=== PATIENT | male | born 1955 | race African-American/Black ===

== ENCOUNTER → 2016-08-02 | Outpatient (CLI) | payer OTHER ==
[2016-03-14 20:09] VITALS: BP 156/86
[~2016-08-02] MED LIST: AMLO5TAB4 PO; ATOR40TA PO; Aspirin PO; BENA20TA2 PO; BENZ200C39 PO; CLOP75TA27 PO; CYCL10TA2 PO; LISI5TAB PO; Metoprolol Tartrate PO
--- NOTE | 2016-08-02 14:59 | CARD ---
APPROVED REPORT EXAM: Two-dimensional and M-mode echocardiogram with Doppler and color Doppler. Other Information Quality : GoodHR: 62bpm Rhythm : NSR INDICATION Non STEMI 2D DIMENSIONS RVDd3.5 (2.9-3.5cm)Left Atrium(2D)3.8 (1.6-4.0cm) IVSd1.0 (0.7-1.1cm)Aortic Root(2D)3.3 (2.0-3.7cm) LVDd5.6 (3.9-5.9cm)LVOT Diameter2.3 (1.8-2.4cm) PWd1.0 (0.7-1.1cm)LVDs4.4 (2.5-4.0cm) FS (%) 21.2 %SV66.0 ml Aortic Valve AoV Peak Wilver.138.4cm/sAoV VTI26.0cm AO Peak GR.7.7mmHgLVOT Peak Wilver.104.4cm/s LVOT VTI 22.22cmAO Mean GR.5mmHg KENNEY (VMAX)3.23vf5ZEZ (VTI)3.55cm2 Mitral Valve MV E Fbwcufls60.8cm/sMV DECEL SEKQ784ve MV A Sozsnkql38.8cm/sMV E Mean Gr.2mmHg MV DGY14faE/A Ratio0.8 MV A Sfjuczcz214gdKLF (PHT)3.13cm2 TDI E/Lateral E'7.4E/Medial E'9.5 Pulmonary Valve PV Peak Clsyadgt090.3cm/sPV Peak Grad.5mmHg RVOT VTI18.4cm Tricuspid Valve TR P. Mzxbnojw524bw/sRAP RRUGCQLY1kiUh TR Peak Gr.15wrRaREYN33cuCr Pulmonary Vein S1 Qlxgmopy77.5cm/sD2 Yxvccupk62.6cm/s PVa wwalrfmt712spkr LEFT VENTRICLE The left ventricle is normal size. There is normal left ventricular wall thickness. Left ventricle sy stolic function is mildly impaired. The Ejection Fraction is 45-50%. There is mild hypokinesis of the septal wall. Transmitral Doppler flow pattern is Grade I-abnormal relaxation pattern. There is no ve ntricular septal defect visualized. RIGHT VENTRICLE The right ventricle is normal size. The right ventricular systolic function is normal. Thickened mode rator band. ATRIA The left atrium size is normal. The right atrium size is normal. The interatrial septum is intact wit h no evidence for an atrial septal defect or patent foramen ovale as noted on 2-D or Doppler imaging. AORTIC VALVE The aortic valve is normal in structure and function. The aortic valve is trileaflet. Doppler and Col or Flow revealed no significant aortic regurgitation. There is no significant aortic valvular stenosi s. MITRAL VALVE The mitral valve is normal in structure and function. There is no evidence of mitral valve prolapse. There is no mitral valve stenosis. Doppler and Color Flow revealed mild mitral regurgitation. TRICUSPID VALVE The tricuspid valve is normal in structure and function. Doppler and Color Flow revealed trace to mil d tricuspid regurgitation. The PA pressure was estimated at 36 mmHg. PULMONIC VALVE The pulmonary valve is normal in structure and function. Doppler and Color Flow revealed trace pulmon ic valvular regurgitation. There is no pulmonic valvular stenosis. GREAT VESSELS The aortic root is normal in size. The ascending aorta is normal in size. Normal pulmonary venous merritt w (Doppler). The IVC is normal in size and collapses >50% with inspiration. PERICARDIAL EFFUSION There is no pleural effusion. There is no evidence of significant pericardial effusion. Critical Notification Critical Value: No <Conclusion> The left ventricle is normal size. Left ventricle systolic function is mildly impaired. The Ejection Fraction is 45-50%. There is mild hypokinesis of the septal wall. There is no significant aortic valvular stenosis. Doppler and Color Flow revealed no significant aortic regurgitation. Doppler and Color Flow revealed mild mitral regurgitation. Doppler and Color Flow revealed trace to mild tricuspid regurgitation. The PA pressure was estimated at 36 mmHg.
== END | disposition home or self-care (01) ==
LOC: ECHO 09:38
PROVIDERS: ATTEND Internal Medicine Cardiovascular Disease
DX: I21.4 Non-ST elevation (NSTEMI) myocardial infarction (principal); R93.1 Abnormal findings on diagnostic imaging of heart and coronary circulation; I08.1 Rheumatic disorders of both mitral and tricuspid valves
CPT/HCPCS: 93306

== ENCOUNTER 2017-05-14 22:42 | Emergency (ER) | payer OTHER ==
[2017-05-14 23:09] LABS: HEMATOCRIT 45.3 % (39.0-53.0); HEMOGLOBIN 15.2 g/dL (13.0-17.5); MEAN CORPUSCULAR HEMOGLOBIN 27 pg (25-35); MEAN CORPUSCULAR HGB CONC 34 g/dL (31-37); MEAN CORPUSCULAR VOLUME 81 fL (79-100); PLATELET COUNT 93 x10^3/uL (140-400); RED BLOOD COUNT 5.57 x10^6/uL (4.30-5.70); RED CELL DISTRIBUTION WIDTH 14.9 % (11.5-14.5); WHITE BLOOD COUNT 7.9 x10^3/uL (4.0-11.0)
[2017-05-14] MEDS: NITROGLYCERIN SUBLINGUAL 0.4 MG BOTTLE OF 25. SL (23:12)
[2017-05-14 23:33] LABS: TROPONINI < 0.017 ng/mL (0.000-0.055)
[2017-05-14 23:55] LABS: ANION GAP 12 (6-14); BLOOD UREA NITROGEN 13 mg/dL (8-26); BUN/CREATININE RATIO 13 (6-20); CALCIUM 9.1 mg/dL (8.5-10.1); CARBON DIOXIDE 29 mmol/L (21-32); CHLORIDE 101 mmol/L (98-107); GFR 91.9; GLUCOSE 134 mg/dL (70-99); POTASSIUM 3.6 mmol/L (3.5-5.1); SODIUM 142 mmol/L (136-145)
[2017-05-15 00:01] LABS: ALBUMIN 3.8 g/dL (3.4-5.0); ALK PHOS 99 U/L (46-116); ALT (SGPT) 30 U/L (16-63); AST (SGOT) 16 U/L (15-37); TOTAL BILIRUBIN 0.7 mg/dL (0.2-1.0); TOTAL PROTEIN 7.5 g/dL (6.4-8.2)
[2017-05-15 02:29] LABS: TROPONINI < 0.017 ng/mL (0.000-0.055)
== END 2017-05-15 03:31 | disposition home or self-care (01) ==
LOC: ER 05-15 03:31
DX: R07.2 Precordial pain (principal); I10 Essential (primary) hypertension; I25.2 Old myocardial infarction; I25.10 Atherosclerotic heart disease of native coronary artery without angina pectoris
CPT/HCPCS: 36415; 71045; 80053; 84484; 85027; 93005; 99285-25

== ENCOUNTER 2021-06-23 00:54 | Emergency (ER) | payer MEDICARE, OTHER ==
[~2021-06-23] VITALS: Ht 175.3 cm; Wt 87.7 kg
[~2021-06-23 00:54] MED LIST changes: +AMLO-187 PO; +ATORVASTATIN CA80 MG PO; -BENA20TA2 PO; +BENA20TA84 PO; +BENA40TA74 PO; -BENZ200C39 PO; +BENZ200C47 PO; +BUPR150T8 PO; +CEPH-264 PO; -CLOP75TA27 PO; +CLOP75TA57 PO; +CYCL10TA19 PO; -CYCL10TA2 PO; +EMPA10TA3 PO; +METF500T16 PO; +METO-247 PO; +SULF1TAB24 PO
[2021-06-23 01:42] LABS: BASO # 0.1 x10^3/uL (0.0-0.2); BASO % 1 % (0-3); EOS # 0.1 x10^3/uL (0.0-0.7); EOS % 2 % (0-3); HEMATOCRIT 40.9 % (39.0-53.0); HEMOGLOBIN 13.5 g/dL (13.0-17.5); LYMPH # 2.6 x10^3/uL (1.0-4.8); LYMPH % 49 % (24-48); MEAN CORPUSCULAR HEMOGLOBIN 27 pg (25-35); MEAN CORPUSCULAR HGB CONC 33 g/dL (31-37); MEAN CORPUSCULAR VOLUME 81 fL (79-100); MONO # 0.5 x10^3/uL (0.0-1.1); MONO % 10 % (0-9); NEUT % 39 % (31-73); PLATELET COUNT 95 x10^3/uL (140-400); RED BLOOD COUNT 5.04 x10^6/uL (4.30-5.70); WHITE BLOOD COUNT 5.2 x10^3/uL (4.0-11.0)
--- NOTE | 2021-06-23 01:44 | ED.ADGEN ---
Past Medical History Past Medical History: High Cholesterol, Hypertension, NH Past Surgical History: Other Additional Past Surgical Histo: Heart stent, menicus tear repair X2, carpal tunnel, right rotator cuff Smoking Status: Current Every Day Smoker Alcohol Use: None Drug Use: None General Adult EDM: Chief Complaint: UPPER EXTREMITY PAIN HPI: HPI: Patient is a 65 year old male coming in for a "fluttering" sensation in his left lateral chest just beneath the breast. 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 Says he does do heavy lifting at work. Patient has a history of an NH 7 years ago and is concerned about having chest pain, does state this feels different. Not taking any anticoagulant or aspirin. Had a stent placed 7 years ago. Review of Systems: Review of Systems: All other systems within normal limits except for as noted in the HPI Current Medications: Current Medications Medications (Trade) Dose Ordered Sig/Khushboo Start Time Stop Time Status Last Admin Dose Admin Magnesium Oxide (Magnesium Oxide) 400 mg 1X STAT 06/23/21 02:17 06/23/21 02:21 DC 06/23/21 02:35 400 MG Potassium Chloride (Klor-Con) 40 meq 1X ONCE 06/23/21 02:30 06/23/21 02:31 DC 06/23/21 02:36 40 MEQ Potassium Phos/ Sodium Phos (Phos-Nak) 1 pkt 1X STAT 06/23/21 02:17 06/23/21 02:21 DC 06/23/21 02:35 1 PKT Allergies: Allergies: Allergies Coded Allergies Type Severity Reaction Last Updated Verified No Known Drug Allergies 04/12/13 No Physical Exam: PE: Constitutional: Well developed, well nourished, no acute distress, non-toxic donavan earance. [] HENT: Normocephalic, atraumatic, bilateral external ears normal, nose normal. [] Eyes: PERRLA, conjunctiva normal, no discharge. [] Neck: No rigidity, supple, no stridor. [] Cardiovascular: Regular rate and rhythm, brisk cap refill [] Lungs & Thorax: Non labored symmetric respirations, no tachypnea or respiratory distress [] Abdomen: Soft, nondistended. Skin: Warm, dry, no erythema, no rash. [] Back: Unremarkable Extremities: No deformities, range of motion grossly intact, no lower extremity edema [] Neurologic: Alert and oriented X 3, no focal deficits noted. [] Psychologic: Affect normal, judgement normal, mood normal. [] Current Patient Data: Labs: Laboratory Tests Test 06/23/21 01:10 White Blood Count 5.2 x10^3/uL (4.0-11.0) Red Blood Count 5.04 x10^6/uL (4.30-5.70) Hemoglobin 13.5 g/dL (13.0-17.5) Hematocrit 40.9 % (39.0-53.0) Mean Corpuscular Volume 81 fL (79-100) Mean Corpuscular Hemoglobin 27 pg (25-35) Mean Corpuscular Hemoglobin Concent 33 g/dL (31-37) Red Cell Distribution Width 14.0 % (11.5-14.5) Platelet Count 95 x10^3/uL (140-400) L Neutrophils (%) (Auto) 39 % (31-73) Lymphocytes (%) (Auto) 49 % (24-48) H Monocytes (%) (Auto) 10 % (0-9) H Eosinophils (%) (Auto) 2 % (0-3) Basophils (%) (Auto) 1 % (0-3) Neutrophils # (Auto) 2.0 x10^3/uL (1.8-7.7) Lymphocytes # (Auto) 2.6 x10^3/uL (1.0-4.8) Monocytes # (Auto) 0.5 x10^3/uL (0.0-1.1) Eosinophils # (Auto) 0.1 x10^3/uL (0.0-0.7) Basophils # (Auto) 0.1 x10^3/uL (0.0-0.2) Sodium Level 141 mmol/L (136-145) Potassium Level 3.2 mmol/L (3.5-5.1) L Chloride Level 99 mmol/L (98-107) Carbon Dioxide Level 29 mmol/L (21-32) Anion Gap 13 (6-14) Blood Urea Nitrogen 18 mg/dL (8-26) Creatinine 1.4 mg/dL (0.7-1.3) H Estimated GFR (Cockcroft-Gault) 61.5 BUN/Creatinine Ratio 13 (6-20) Glucose Level 146 mg/dL (70-99) H Calcium Level 9.5 mg/dL (8.5-10.1) Phosphorus Level 2.1 mg/dL (2.6-4.7) L Magnesium Level 1.6 mg/dL (1.8-2.4) L Total Bilirubin 1.0 mg/dL (0.2-1.0) Aspartate Amino Transferase (AST) 19 U/L (15-37) Alanine Aminotransferase (ALT) 27 U/L (16-63) Alkaline Phosphatase 86 U/L (46-116) Troponin I High Sensitivity 9 ng/L (4-75) Total Protein 7.1 g/dL (6.4-8.2) Albumin 4.1 g/dL (3.4-5.0) Albumin/Globulin Ratio 1.4 (1.0-1.7) Laboratory Tests 06/23/21 01:10 Laboratory Tests 06/23/21 01:10 Vital Signs: Vital Signs Date Time Temp Pulse Resp B/P (MAP) Pulse Ox O2 Delivery O2 Flow Rate FiO2 06/23/21 00:55 98.7 71 20 141/69 (93) 100 Room Air 98.7 EKG: EKG: Sinus rhythm, heart rate 70 beats minute, normal axis, no isolation depression [] Heart Score: C/O Chest Pain: Yes HEART Score for Chest Pain: HEART Score for Chest Pain Response (Comments) Value History Slighlty/Non-Suspicious 0 ECG Normal 0 Age > 65 2 Risk Factors >3 Risk Factors or Hx CAD 2 Troponin < Normal Limit 0 Total 4 Risk Factors: Risk Factors: DM, Current or recent (<one month) smoker, HTN, HLP, family history of CAD, obesity. Risk Scores: Score 0 - 3: 2.5% MACE over next 6 weeks - Discharge Home Score 4 - 6: 20.3% MACE over next 6 weeks - Admit for Clinical Observation Score 7 - 10: 72.7% MACE over next 6 weeks - Early Invasive Strategies Radiology/Procedures: Radiology/Procedures: [facility] [address] [place], [place] [id number] IMAGING REPORT Signed PATIENT: RICARDO GEORGE ACCOUNT: [id number] : 1955 LOCATION: ER AGE: 65 SEX: M EXAM STATUS: REG ER ORD. PHYSICIAN: ANGELICA MCKEON MD REASON: chest pain PROCEDURE: CHEST AP ONLY EXAM: XR CHEST 1V 06/23/2021 1:38 AM CLINICAL INDICATION: Chest pain COMPARISON: Chest radiograph 10/26/2018 TECHNIQUE: AP upright view of the chest FINDINGS: The heart is normal in size. Lungs are adequately expanded. No consolidation, pleural effusion, or pneumothorax. IMPRESSION: No acute cardiopulmonary abnormality. Electronically signed by: Angelica Anna MD (06/23/2021 2:29 AM) [facility] DICTATED and SIGNED BY: ANGELICA ANNA MD DATE: 06/23/21 [id number] [] Course & Med Decision Making: Course & Med Decision Making Pertinent Labs and Imaging studies reviewed. (See chart for details) [] Dragon Disclaimer: Dragon Disclaimer: This electronic medical record was generated, in whole or in part, using a voice recognition dictation system. Departure Departure Impression: Primary Impression: Chest pain Additional Impression: Hypokalemia Disposition: 01 HOME / SELF CARE / HOMELESS Condition: STABLE Referrals: CAROLINE SIERRA MD (PCP) Patient Instructions: Hypokalemia-Brief Problem Qualifiers ANGELICA MCKEON MD Jun 23, 2021 01:44
[2021-06-23 02:03] LABS: ALBUMIN 4.1 g/dL (3.4-5.0); ALBUMIN/GLOBULIN RATIO 1.4 (1.0-1.7); CALCIUM 9.5 mg/dL (8.5-10.1); CREATININE 1.4 mg/dL (0.7-1.3); GFR 61.5; MAGNESIUM 1.6 mg/dL (1.8-2.4); PHOSPHORUS 2.1 mg/dL (2.6-4.7); POTASSIUM 3.2 mmol/L (3.5-5.1); TOTAL PROTEIN 7.1 g/dL (6.4-8.2)
[2021-06-23] MEDS ORDERED: MAGNESIUM OXIDE 400 MG TABLET PO STA (02:17)
[2021-06-23] MEDS ORDERED: POTASSIUM & SODIUM PHOSPHATES PACKET. PO STA (02:17)
[2021-06-23] MEDS ORDERED: POTASSIUM CHLORIDE 20 MEQ TABLET.ER. PO ONE (02:30)
--- NOTE | 2021-06-23 02:32 | RAD ---
EXAM: XR CHEST 1V 06/23/2021 1:38 AM CLINICAL INDICATION: Chest pain COMPARISON: Chest radiograph 10/26/2018 TECHNIQUE: AP upright view of the chest FINDINGS: The heart is normal in size. Lungs are adequately expanded. No consolidation, pleural effu aixa, or pneumothorax. IMPRESSION: No acute cardiopulmonary abnormality. Electronically signed by: Angelica Anna MD (06/23/2021 2:29 AM) [facility]
[2021-06-23 02:36] VITALS: BP 142/81
--- NOTE | 2021-06-24 01:10 | EKG ---
[facility] [address] [place] [address] Test Date: 2021-06-23 Test Time: 01:02:58 Pat Name: RICARDO GEORGE Department: Room: Gender: M Ambulance Driver Paramedic: : 1955 Requested By: PRETTY MCKEON Order Number: [id number] Reading MD: Trevon Caro MD Measurements Intervals [place] Rate: 73 P: 28 VT: 198 QRS: 28 QRSD: 100 T: 26 QT: 404 QTc: 449 Interpretive Statements SINUS RHYTHM Electronically Signed On 06-25-2021 10:16:12 BOX OFFICE MANAGER by Trevon Caro MD
--- NOTE | 2021-07-18 11:00 | EKG ---
[facility] [address] [place] [address] Test Date: 2021-06-23 Test Time: 01:02:58 Pat Name: RICARDO GEORGE Department: Room: Gender: M Diesel Mechanic: : 1955 Requested By: PRETTY MCKEON Order Number: [id number] Reading MD: Trevon Caro MD Measurements Intervals [place] Rate: 73 P: 28 CA: 198 QRS: 28 QRSD: 100 T: 26 QT: 404 QTc: 449 Interpretive Statements SINUS RHYTHM Electronically Signed On 06-25-2021 10:16:12 FERRY BOAT CAPTAIN by Trevon Caro MD [facility]
== END 2021-06-23 02:50 | disposition home or self-care (01) ==
LOC: ER 00:54
DX: E87.6 Hypokalemia (principal); R07.89 Other chest pain; E78.00 Pure hypercholesterolemia, unspecified; I10 Essential (primary) hypertension; I25.2 Old myocardial infarction; F17.200 Nicotine dependence, unspecified, uncomplicated
CPT/HCPCS: 36415; 71045; 80053; 83735; 84100; 84484; 85025; 93005; 99285